=== PATIENT | female | born 1960 | race Caucasian/White ===

== ENCOUNTER 2018-10-27 08:16 | Outpatient (CLI) | payer OTHER ==
[~2018-10-27 08:16] MED LIST: HYDR-3237 PO; HYDR-3240 PO; ONDA4TAB10 PO
[2018-12-02] MEDS ORDERED: NONE PER PT (07:57)
== END 2018-10-27 23:59 | disposition home or self-care (01) ==
LOC: CFH 08:16
PROVIDERS: ATTEND Physician Assistant Surgical
DX: S83.282A Other tear of lateral meniscus, current injury, left knee, initial encounter (principal); M25.462 Effusion, left knee; M25.862 Other specified joint disorders, left knee; X58.XXXA Exposure to other specified factors, initial encounter; Y93.89 Activity, other specified; Y92.89 Other specified places as the place of occurrence of the external cause; Y99.8 Other external cause status